=== PATIENT | female | born 1970 | race Caucasian/White ===

== ENCOUNTER → 2017-05-15 | Outpatient (CLI) | payer OTHER ==
[2017-05-15 15:50] LABS: Basophils % (A) 1 %; CH 27.1; Eosinophils # (A) 0.3 k/uL (0-0.7); Eosinophils % (A) 3 %; HCT 38.3 % (34.0-46.0); HDW 2.86; HGB 12.2 gm/dL (11.4-16.0); Hypochromasia Slight; Luc # (Auto) 0.15; Luc % (Auto) 2; Lymphocytes % (A) 23 %; MCH 27.2 pg (25.0-35.0); MCHC 31.9 g/dL (31.0-37.0); MCV 85.3 fL (80.0-100.0); Mean Platelet Volume 7.3; Monocytes # (A) 0.4 k/uL (0-1.0); Monocytes % (A) 5 %; Neutrophils % (A) 68 %; RBC 4.49 m/uL (3.80-5.40); RDW 13.5 % (11.5-15.5); WBC 8.9 k/uL (3.8-10.6); WBC (Perox) 9.12
== END | disposition home or self-care (01) ==
LOC: LABPAT 15:14
PROVIDERS: ATTEND Obstetrics & Gynecology
DX: Z01.812 Encounter for preprocedural laboratory examination (principal)
CPT/HCPCS: 85025

== ENCOUNTER 2017-06-02 07:48 | Day surgery (SDC) | payer OTHER ==
[2017-05-30 10:04] VITALS: BMI 38.4
[~2017-06-02 07:48] MED LIST: DEXAMETHASONE SOD PHOSPHATE 10 MG/ML 1 ML VIAL IV ONE; HYDROmorphone 1 MG/ML 1 ML SYRINGE IVP PRN; LACTATED RINGERS 1,000 ML IV SCH; LIDOCAINE 1% 20 ML VIAL (10MG/ML) FOR IV START INTRADERMA PRN; MIDAZOLAM 2 MG/2 ML VIAL IV PRN; ONDANSETRON 4 MG/2 ML VIAL IVP ONE; Pre Op ABX Message 1 EACH MISC MISCELLANE ONE; SCOPOLAMINE 1.5MG/72HR PATCH TRANSDERM ONE
[2017-06-02] MEDS ORDERED: LIDOCAINE 1% 20 ML VIAL (10MG/ML) FOR IV START INTRADERMA ONE (08:17)
[2017-06-02] MEDS ORDERED: DEXAMETHASONE SOD PHOSPHATE 10 MG/ML 1 ML VIAL IV ONE (08:27)
[2017-06-02] MEDS ORDERED: ONDANSETRON 4 MG/2 ML VIAL IVP ONE (08:28)
[2017-06-02] MEDS ORDERED: KETOROLAC 30 MG/ML 1 ML VIAL ONE (08:48)
[2017-06-02] MEDS ORDERED: MIDAZOLAM 2 MG/2 ML VIAL ONE (08:48)
[2017-06-02] MEDS ORDERED: PROPOFOL 10 MG/ML 20 ML VIAL IV ONE (08:48)
[2017-06-02] MEDS ORDERED: fentaNYL (PF) 50 MCG/ML 2 ML AMP ONE (08:48)
[2017-06-02] MEDS ORDERED: LIDOCAINE 1% INJ 10MG/ML (20 ML MDV) ONE (08:48)
[2017-06-02] MEDS ORDERED: LIDOCAINE 1% INJ 10MG/ML (10 ML MDV) SQ ONE (09:05)
--- NOTE | 2017-06-02 09:21 | P.OP ---
Date of Procedure: 06/02/17 Preoperative Diagnosis: Menorrhagia Postoperative Diagnosis: Same Procedure(s) Performed: Diagnostic hysteroscopy and NovaSure endometrial ablation Implants: Anesthesia: MAC Surgeon: Maira Pagan Estimated Blood Loss (ml): 10 IV fluids (ml): 600 Urine output (ml): 25 Pathology: none sent Condition: stable Disposition: PACU Indications for Procedure: Operative Findings: Uterus sounding to 10.5 cm. Very fluffy endometrium. No gross intracavitary lesions. Description of Procedure: The patient was met in the preoperative holding area and all questions were answered. She was transported to the operating room where anesthetic was administered without incident. She was positioned, prepped and draped in the dorsal lithotomy position. Exam under anesthetic was performed. Bladder was drained for approximately 25 mL of clear urine. Single-sided speculum was placed in the vagina and the cervix was grasped anteriorly with a single-tooth tenaculum. Paracervical block with 1% lidocaine was placed. The uterus was sounded to 10.5 cm. The cervix was sequentially dilated with Hegar dilators to allow for passage of the diagnostic hysteroscope. The hysteroscope was introduced and a fluffy endometrium was appreciated. The hysteroscope was removed and the NovaSure ablation device was inserted without difficulty. Cavity length was 5.5 cm with a width of 3.5 cm. Cavity assessment test was passed. The device was enabled at a power of 106 W for a treatment cycle was 69 seconds. Following cessation of the treatment cycle the device was removed. The hysteroscope was reintroduced. Desiccation of the endometrium was appreciated. Instruments were then removed from the cervix as was the tenaculum. No active bleeding was noted. Instruments removed from the vagina and the patient was awoken from anesthetic without incident and transported to recovery area in stable condition. All counts reported to me as correct by the operating room staff.
[2017-06-02 09:32] VITALS: TEMP 98.5
[2017-06-02 10:07] VITALS: RESP 18
[2017-06-02 10:35] VITALS: PULSE 77
[2017-06-02 10:42] VITALS: BP 113/72
== END 2017-06-02 11:22 | disposition home or self-care (01) ==
LOC: OR 07:48
PROVIDERS: ATTEND Obstetrics & Gynecology
DX: N92.0 Excessive and frequent menstruation with regular cycle (principal); D25.9 Leiomyoma of uterus, unspecified; N93.8 Other specified abnormal uterine and vaginal bleeding; E66.9 Obesity, unspecified; Z68.41 Body mass index [BMI] 40.0-44.9, adult; J45.909 Unspecified asthma, uncomplicated; E11.9 Type 2 diabetes mellitus without complications; Z79.84 Long term (current) use of oral hypoglycemic drugs; Z79.899 Other long term (current) drug therapy; Z88.2 Allergy status to sulfonamides; Z91.040 Latex allergy status; Z87.891 Personal history of nicotine dependence
CPT/HCPCS: 81025; 58563; J2250; J1100; J2405; J2001 ×2; J3010; J1885; J2704

== ENCOUNTER → 2017-07-31 | Outpatient (CLI) | payer OTHER ==
--- NOTE | 2017-08-01 08:27 | MM ---
Reason for exam: screening (asymptomatic). Baseline mammogram. History: Family history of breast cancer in maternal cousin at age 18. Physical Findings: Nurse did not find any significant physical abnormalities on exam. MG 3D Screening Mammo W/Cad Bilateral CC and MLO view(s) were taken. There are scattered fibroglandular densities. There is no discrete abnormality. These results were verbally communicated with the patient and result sheet given to the patient on 07/31/17. ASSESSMENT: Negative, BI-RAD 1 RECOMMENDATION: Routine screening mammogram of both breasts in 1 year.
== END | disposition home or self-care (01) ==
LOC: RADMAMWWP 14:15
PROVIDERS: ATTEND Obstetrics & Gynecology
DX: Z12.31 Encounter for screening mammogram for malignant neoplasm of breast (principal)
CPT/HCPCS: 77063; G0202

== ENCOUNTER → 2020-07-26 | Outpatient (CLI) | payer BC ==
--- NOTE | 2020-07-26 10:12 | XR ---
EXAMINATION TYPE: XR calcaneus 2V LT DATE OF EXAM: 07/26/2020 COMPARISON: NONE HISTORY: Pain TECHNIQUE: 2 view submitted FINDINGS: Osseous structures intact. There is calcification along the plantar neurosis. Large calcane al spurs are noted. No acute fracture or dislocation. IMPRESSION: 1. Large calcaneal spurs
--- NOTE | 2020-07-27 12:37 | MM ---
Reason for exam: screening (asymptomatic). Last mammogram was performed 3 years ago. History: Family history of breast cancer in maternal cousin at age 18. Physical Findings: A clinical breast exam by your physician is recommended on an annual basis and results should be correlated with mammographic findings. MG 3D Screening Mammo W/Cad Bilateral CC and MLO view(s) were taken. XCCL view(s) were taken of the left breast. Prior study comparison: July 31, 2017, bilateral MG 3d screening mammo w/cad. No significant changes when compared with prior studies. ASSESSMENT: Benign, BI-RAD 2 RECOMMENDATION: Routine screening mammogram of both breasts in 1 year. Manage patient on a clinical basis.
== END | disposition home or self-care (01) ==
LOC: RADMAMWWP 09:36
PROVIDERS: ATTEND Family Medicine
DX: Z12.31 Encounter for screening mammogram for malignant neoplasm of breast (principal); M77.32 Calcaneal spur, left foot
CPT/HCPCS: 77063; 77067

== ENCOUNTER → 2022-03-06 | Outpatient (CLI) | payer BC ==
--- NOTE | 2022-03-07 14:15 | US ---
EXAMINATION TYPE: US transvaginal DATE OF EXAM: 03/06/2022 COMPARISON: NONE CLINICAL HISTORY: 51-year-old female N92.0 MENORRHAGIA. Abnormal bleeding TECHNIQUE: Transvaginal (TV). FINDINGS: EXAM MEASUREMENTS: Uterus: 10 x 7.1 x 5.6 cm Endometrial Stripe: 1.1 cm 1. Uterus: Anteverted but retroflexed. Cervical nabothian cyst seen measuring up to 8 mm. A couple a dditional smaller cysts measuring up to 3 mm. The high school band teacher indicates a large area located central ly in the uterus and attributes it to a large 6.0 x 5.8 x 5.1 cm fibroid. Upon review of images, this measurement may be overestimated but it does seem to have mass effect on to the endometrial stripe. 2. Endometrium: wnl 3. Right Ovary: Obscured by overlying bowel gas 4. Left Ovary: Obscured by overlying bowel gas 5. Bilateral Adnexa: wnl 6. Posterior cul-de-sac: wnl IMPRESSION: 1. Centrally located heterogeneous area measuring up to 6.0 cm indicated by the high school band teacher to repres ent a fibroid. This size may be overestimated but it does seem to have some mass effect on the endome trial stripe. Further evaluation with female pelvic MRI can be performed to more accurately delineate underlying fibroid change. 2. Unable to visualize either ovary.
== END | disposition home or self-care (01) ==
LOC: RADUSWWP 15:37
PROVIDERS: ATTEND Family Medicine
DX: D25.9 Leiomyoma of uterus, unspecified (principal)
CPT/HCPCS: 76830

== ENCOUNTER → 2022-03-22 | Outpatient (CLI) | payer BC ==
--- NOTE | 2022-03-26 18:29 | MM ---
Reason for Exam: Screening (asymptomatic). Last mammogram was performed 1 year(s) and 8 month(s) ago. Patient History: Menarche at age 14. First Full-Term at age 23. Maternal cousin had breast cancer, age 18. Risk Values: Marianela 5 year model risk: 0.9%. NCI Lifetime model risk: 8.0%. Prior Study Comparison: 07/31/2017 Bilateral Screening Mammogram, [facility]. 07/26/2020 Bilateral Screening Mammogram, [facility]. Tissue Density: There are scattered fibroglandular densities. Findings: Analyzed By CAD. There is no suspicious group of microcalcifications or new suspicious mass in either breast. Overall Assessment: Negative, BI-RAD 1 Management: Screening Mammogram of both breasts in 1 year. 1. Patient should continue monthly self breast exams. 2. A clinical breast exam by your physician is recommended on an annual basis. 3. This exam should not preclude additional follow-up of suspicious palpable abnormalities. Electronically signed and approved by: Juliann Jones M.D. Radiologist
== END | disposition home or self-care (01) ==
LOC: RADMAMWWP 09:44
PROVIDERS: ATTEND Family Medicine
DX: Z12.31 Encounter for screening mammogram for malignant neoplasm of breast (principal); Z80.3 Family history of malignant neoplasm of breast
CPT/HCPCS: 77063; 77067

== ENCOUNTER → 2023-08-28 | Outpatient (CLI) | payer BC ==
--- NOTE | 2023-08-29 08:49 | XR ---
EXAMINATION TYPE: XR shoulder complete 3 views LT DATE OF EXAM: 08/28/2023 Comparison: None Clinical History: 53-year-old female M25.512 pain in left shoulder Findings: Mild early degenerative joint space narrowing at the glenohumeral joints. No delineation to the great er tuberosity. No tendinous or bursal calcifications. The AC joint appears intact. Impression: There may be mild early degenerative joint space narrowing at the glenohumeral joint. No acute osseou s abnormality seen.
== END | disposition home or self-care (01) ==
LOC: RADXRMAIN 18:25
PROVIDERS: ATTEND Family Medicine
DX: M25.512 Pain in left shoulder (principal)

== ENCOUNTER → 2023-12-08 | Outpatient (CLI) | payer BC ==
--- NOTE | 2023-12-13 15:20 | MR ---
EXAMINATION TYPE: MR cervical spine wo con DATE OF EXAM: 12/08/2023 9:30 PM CLINICAL INDICATION:Female, 53 years old with history of M54.12 RADICULOPATHY CERVICAL REGION; PHH, N bhupinder pain into Left shoulder/arm COMPARISON: None. TECHNIQUE: Multi planar, multi sequence imaging was performed utilizing: T1-weighted, T2-weighted, an d turbo inversion recovery imaging of the cervical spine. IV Contrast: cc (none if empty) FINDINGS: Alignment: The cervical vertebral bodies have preserved heights. Alignment is within normal limits gi jory patient positioning. Bones: Osteophytes and disc space narrowing most pronounced at the C4-C5 and C6-C7 vertebral levels. Cord: The spinal cord is unremarkable with regards to their signal intensity and morphology. Discs: Intervertebral disc signal is maintained. C2-C3: No significant disc pathology. The spinal canal is patent. No neural foraminal stenosis. C3-C4: No significant disc pathology. The spinal canal is patent. Bilateral facet and uncovertebral joint arthropathy are present with mild right neural foraminal stenosis. The left neural foramen is p atent. C4-C5: No significant disc pathology. The spinal canal is patent. No neural foraminal stenosis. C5-C6: No significant disc pathology. The spinal canal is patent. No neural foraminal stenosis. C6-C7: No significant disc pathology. The spinal canal is patent. No neural foraminal stenosis. C7-T1: No significant disc pathology. The spinal canal is patent. No neural foraminal stenosis. Other: None. IMPRESSION: 1. No evidence for disc herniation or significant spinal canal stenosis. 2. Mild disc degeneration with associated osteoarthritic changes.
== END | disposition home or self-care (01) ==
LOC: RADMRIMAIN 20:45
PROVIDERS: ATTEND Family Medicine
DX: M47.22 Other spondylosis with radiculopathy, cervical region (principal); M50.10 Cervical disc disorder with radiculopathy, unspecified cervical region
CPT/HCPCS: 72141

== ENCOUNTER → 2023-12-22 | Outpatient (CLI) | payer BC ==
--- NOTE | 2023-12-25 11:56 | MR ---
EXAMINATION TYPE: MR shoulder LT wo con DATE OF EXAM: 12/22/2023 COMPARISON: Left shoulder x-ray August 28, 2023 HISTORY: Pain left shoulder and biceps area, limited movement since 2019 TECHNIQUE: Multiplanar, multisequence imaging of the left shoulder is performed without contrast. FINDINGS: Rotator Cuff: Intact infraspinatus tendon. Increased signal in the supraspinatus tendon with focal te aring along the bursal surface at level of the humeral head. Intact supraspinatus tendon. Rotator cuf f muscle bulk is preserved. Acromioclavicular Joint: Moderate narrowing at the acromioclavicular joint. Type II downsloping acrom ion is seen. Glenohumeral Joint: Small joint effusion. No significant spurring. Labrum: The labrum appears grossly intact given limitation of non-arthrogram study. Biceps Tendon: The long head of biceps is in normal location within bicipital groove. Bone marrow signal: No focal abnormal marrow signal is appreciated. Other: No additional significant abnormality is appreciated. IMPRESSION: 1. Tendinosis and significant tearing of the distal supraspinatus tendon. 2. Type II downsloping acromion is noted.
== END | disposition home or self-care (01) ==
LOC: RADMRIMAIN 17:24
PROVIDERS: ATTEND Family Medicine
DX: M67.814 Other specified disorders of tendon, left shoulder (principal); M89.8X1 Other specified disorders of bone, shoulder; M75.42 Impingement syndrome of left shoulder